=== PATIENT | female | born 1935 | race Caucasian/White ===

== ENCOUNTER → 2016-09-19 | Outpatient (CLI) | payer MEDICARE ==
[~2016-09-19] MED LIST: ACETAMINOPHEN500 M1 PO; AMOXICILLIN500 MG PO; ASPIRIN EC81 MG PO; DULCOLAX10 MG R; FEOSOL325 MG PO; HYDROCORTISONE28 GM R; LOPRESSOR50 MG PO; MILK OF MAGN400 ML PO; MIRALAX17 GM PO; SENOKOT8.6 MG PO; ZOCOR20 MG PO
[2016-09-19 14:13] LABS: BILIRUBIN URINE NEGATIVE (NEGATIVE); BLOOD URINE 250 /UL (NEGATIVE); COLOR URINE YELLOW (YELLOW); GLUCOSE URINE NEGATIVE (NEGATIVE); KETONE URINE NEGATIVE (NEGATIVE); LEUKOCYTES URINE 500 /UL (NEGATIVE); NITRITE URINE NEGATIVE (NEGATIVE); PROTEIN URINE 100 mg/dL (NEGATIVE); SPEC GRAVITY URINE 1.015 (1.003-1.035); TURBIDITY URINE 4+ (CLEAR); UROBILINOGEN URINE NORMAL (NORMAL)
[2016-09-19 14:22] LABS: BACTERIA URINE MANY (NEGATIVE); RENAL EPITH URINE 0-2 #/HPF (NEGATIVE); WBC URINE 50-100 #/HPF (NEGATIVE)
[2016-09-19 14:23] LABS: HYALINE CAST URINE 0-2 #/LPF (NEGATIVE); MUCUS URINE 1+ (NEGATIVE)
== END | disposition disaster alternative care site (69) ==
LOC: LGSMG 14:06
PROVIDERS: Internal Medicine Nephrology
DX: E11.9 Type 2 diabetes mellitus without complications (principal)